=== PATIENT | male | born 1950 | race Caucasian/White ===

== ENCOUNTER 2019-06-26 07:30 | Inpatient (IN) | payer MEDICARE ==
[2019-07-16] MEDS ORDERED: Buffered Lidocaine 1% SYRIN* 1 ML/SYRINGE INTRADERM ONE (15:12)
[2019-07-17] MEDS ORDERED: Lactated Ringers 1000 ML Bag* 1,000 ML IV SCH (06:00)
--- OUTSIDE RECORDS SUMMARY | 2019-07-17 13:30 | XMS REPORT | Continuity of Care Document ---
:1950 Author Organization 0001 - [facility] [employer] Address [address] [place] [address] Phone Care Team Providers Name Role Phone MONTANO DO, KEYOOR Unavailable Unavailable Allergies, Adverse Reactions, Alerts Substance Reaction Status No Known Allergies Active Medications Medication Instructions Dosage Effective Status Comments Dates (start - stop) losartan 50 mg tablet take 1 tablet by 50 MG - Active oral route every day hydrochlorothiazide 12.5 take 1 capsule 12.5 MG - Active mg capsule by oral route every day Eliquis 5 mg tablet take 1 tablet by 5 MG - Active oral route 2 times every day metoprolol succinate ER take 1 tablet by 50 MG - Active 50 mg tablet,extended oral route release 24 hr every day amlodipine 10 mg tablet take 1 tablet by 10 MG - Active oral route every day glimepiride 2 mg tablet take 1 tablet by 2 MG - Active oral route every day Janumet 50 mg-1,000 mg take 1 tablet by 1.00 tablet - Active tablet oral route 2 times every day with meals levothyroxine 137 mcg take 1 tablet by 137 MCG - Active tablet oral route every day omeprazole 20 mg take 1 capsule 20 MG - Active capsule,delayed release by oral route every day 30 minutes to 1 hour before a meal Tylenol PM Extra take 2 tablet by 2.00 tablet - Active Strength 25 mg-500 mg oral route tablet every day at bedtime HYDROXYZINE HCL (unknown Use as directed Not Available - Active strength) GLUCOSAMINE HCL (unknown Use as directed Not Available - Active strength) losartan 50 take 1 tablet by 1.00 tablet - No Longer mg-hydrochlorothiazide oral route Active 12.5 mg tablet every day Aspir-81 81 mg take 1 tablet by 81 MG - No Longer tablet,delayed release oral route Active every day naproxen 500 mg tablet take 1 tablet by 500 MG - No Longer oral route 2 Active times every day with food Problems Condition Effective Dates (start - stop) Clinical Status Abnormal EKG Essential (primary) hypertension Morbid (severe) obesity due to excess calories Right ventricular dilation Atrial fibrillation Hypertensive heart disease without - heart failure Type 2 diabetes mellitus without - complications Hyperlipidemia, unspecified - Peripheral vascular disease, - unspecified Obstructive sleep apnea (adult) - (pediatric) Body mass index (BMI) 45.0-49.9, adult - senior living (current) use of - anticoagulants Sleep apnea, unspecified - Snoring - Body mass index (BMI) 45.0-49.9, adult Atrial fibrillation Essential (primary) hypertension Morbid (severe) obesity due to excess calories Type 2 diabetes mellitus without complications Snoring Morbid (severe) obesity due to excess - calories Morbid (severe) obesity due to excess - calories Morbid (severe) obesity due to excess - calories Dietary counseling and surveillance - Abnormal EKG Essential (primary) hypertension Morbid obesity due to excess calories Right ventricular dilation Atrial fibrillation Hypertensive heart disease without - heart failure Type 2 diabetes mellitus without - complications senior living (current) use of - anticoagulants Body mass index (BMI) 45.0-49.9, adult - Atrial fibrillation Essential (primary) hypertension Morbid obesity due to excess calories Type 2 diabetes mellitus without complications senior living (current) use of - anticoagulants Body mass index (BMI) 45.0-49.9, adult - Low back pain - Low back pain - Low back pain - Low back pain - Low back pain - Low back pain - Abnormal EKG Essential (primary) hypertension Morbid obesity due to excess calories Right ventricular dilation Hypertensive heart disease without - heart failure Body mass index (BMI) 45.0-49.9, adult - Low back pain - Low back pain - Low back pain - Low back pain - Low back pain - Acute bilateral low back pain without sciatica Other dorsalgia Abnormal EKG Essential (primary) hypertension Morbid obesity due to excess calories Bilateral claudication of lower limb Essential (primary) hypertension Pain in right leg - Pain in left leg - Pain in left lower leg - Pain in left knee - Pain in left lower leg - Pain in left knee - Pain in left lower leg - Pain in left knee - Pain in left lower leg - Pain in left knee - Type 2 diabetes mellitus without complications Morbid obesity due to excess calories Dietary counseling and surveillance Adjustment disorder with mixed anxiety and depressed mood Pain in left lower leg - Pain in left knee - Pain in left lower leg - Pain in left knee - Pain in left lower leg - Pain in left knee - Pain in left lower leg - Pain in left knee - Pain in left lower leg - Pain in left knee - Morbid obesity due to excess calories Dietary counseling and surveillance Type 2 diabetes mellitus without complications Pain in left lower leg - Pain in left knee - Pain in left lower leg - Pain in left knee - Pain in left lower leg - Pain in left knee - Pain in left lower leg - Pain in left knee - Pain in left lower leg - Pain in left knee - Pain in left lower leg - Pain in left knee - Pain in left lower leg - Pain in left knee - Pain in left lower leg - Pain in left knee - Morbid obesity due to excess calories Dietary counseling and surveillance Pain in left lower leg - Pain in left knee - Pain in left lower leg - Pain in left knee - Pain in left lower leg - Pain in left knee - Pain in left lower leg - Pain in left knee - Pain in left lower leg - Pain in left knee - Pain in left lower leg - Pain in left knee - Procedure and treatment not carried - out, unspecified reason Body mass index (BMI) 45.0-49.9, adult Morbid obesity due to excess calories Dietary counseling and surveillance Pain of left lower leg Acute pain of left knee Adjustment disorder with mixed anxiety - and depressed mood Low back pain - Pain in right hip - Pain in right knee - Low back pain Pain in unspecified hip Low back pain - Pain in right hip - Pain in right knee - Low back pain - Pain in right hip - Pain in right knee - Low back pain - Pain in right hip - Pain in right knee - Low back pain - Pain in right hip - Pain in right knee - Low back pain - Pain in right hip - Pain in right knee - Low back pain - Pain in right hip - Pain in right knee - Low back pain - Pain in right hip - Pain in right knee - Low back pain - Pain in right hip - Pain in right knee - Low back pain - Pain in right hip - Pain in right knee - Right hip pain Lumbar pain with radiation down right leg Right medial knee pain Benign paroxysmal vertigo, right ear - Dizziness and giddiness Benign paroxysmal positional vertigo, right Procedures Procedure Date Office/outpatient visit,est, [facility] P4P: Systolic BP < 130 Mm/hg Most Recent BP 80-89 Diastolic Results Test Name Date and Time Measure Units Reference Range Abnormal Flag Status Comments Unknown Encounters Encounter Practice Location Reason(s) For Diagnoses Date Provider Providers Description Visit Copied on Encounter Office/outpa 0001 - [facility] Follow Up of Abnormal SAMMI peter [employer], Cardiology Afib (chief EKGEssential 3202 KEYOOR. 30 visit,est, 33-57 complaint)Fol (primary) 0 Joey jess Cook low Up of hypertensionM [facility], Hypertension orbid Suite [facility] [place] (chief (severe) [place], [place], complaint)[place], [address], low Up of Ab to excess [address]. tel:+160 EKG (chief caloriesRight tel:[phone] complaint) ventricular 11554 dilationAtria l fibrillationH ypertensive heart disease without heart failureType 2 diabetes mellitus without complications Hyperlipidemi a, unspecifiedPe ripheral vascular disease, unspecifiedOb structive sleep apnea (adult) (pediatric)Greg dy mass index (BMI) 45.0-49.9, adultLong term (current) use of anticoagulant s 2019 - S Sleep Sleep apnea, Sep- CONNIE [employer], Center unspecified 3-201 ELIAN. 93 33-57 9 Jamey Martinez [facility], [facility], [address]. [place], [place], tel:[phone], [place] [address] tel: [phone] 2019 - [facility] Sleep Snoring Sep-2 CONNIE [facility] [address], Center 0-201 ELIAN. 93 33-57 9 [place] Joey [facility], [place], [facility], [address]. [place], [place], tel:[phone], [place] [address] tel: [phone] 0001 - [facility] Sleep Body mass Sep-0 [employer] [facility] [address], Center index (BMI) 3-201 ELIAN. 93 33-57 45.0-49.9, 9 [place] Joey [facility] Michelle, [facility], [place], [facility], [address]. [place], (primary) tel:[phone], [place] hypertensionM [address] tel: orbid [phone] (severe) obesity due to excess caloriesType 2 diabetes mellitus without complications Snoring 0001 - [facility] Fidelia Aug-0 MONTANO [employer], Cardiology 1-201 KEYOOR. 30 33-57 9 Joey Cormier, [place], [address], [place], [place], [place], [address], [place] [address]. tel: tel:[phone] 0001 - [facility] Morbid Kavon-1 [employer], Cardiology (severe) 0-201 QUYNH. . 33-57 obesity due [address], [place], [address], [place] tel: [phone] 0001 - [facility] Morbid Alhaji-2 [employer], Cardiology (severe) 6-201 QUYNH. . 33-57 obesity due [address], [place], [address], [place] tel: [phone] 0001 - [facility] Morbid Alhaji-1 [employer], Cardiology (severe) 2-201 QUYNH. . 33-57 obesity due [address], [place]eta [place], [place] [address], [place] surveillance tel: [phone] 0001 - [facility] Alhaji- [employer], Cardiology 7 KATH. 30 9 [facility], [place], [address], [place], [place], [place], [address], [place] [address]. tel: tel:[phone] 0001 - [facility] Abnormal Oct- [facility], Cardiology EKGEssential KEYOOR. (primary) 9 [facility], [place], orbid obesity [address] [place] [address] due to excess [place], [place], [place], [address], [place] ventricular [address]. tel: dilationAtria tel:[phone] l 42256 fibrillationH ypertensive heart disease without heart failureType 2 diabetes mellitus without complications senior living (current) use of anticoagulant sBody mass index (BMI) 45.0-49.9, adult 0001 - [facility] Atrial September- FISH ESPERANZA. [facility] [address], Cardiology fibrillationE 30 [place] ssential 9 [facility] (primary) [address], [address], [facility] [place], [place], due to excess [address]. [address], [place] caloriesType tel:776 tel: 2 diabetes [phone] mellitus without complications termite control technician (current) use of anticoagulant sBody mass index (BMI) 45.0-49.9, adult 0001 - S Phys Low back pain Nov- ERIC [employer] Inc, Therapy PEE. 91 Provider: 33- Blake Lozano [facility], [address] [place] [address], [address], [place], [place], tel:[phone] [place], [address], [place] [address] [place], [address]. tel: tel:[phone] 0001 - S Phys Low back pain Nov-2 BURPEE Referring [employer] Inc, Therapy DAMION. 91 Provider: 33-Paul Lozano SU[place] [address], [address]. , [place], tel:[phone] [place], [address], [place] [address] [place], [address]. tel: tel:[phone] 0001 - [facility] Low back pain Nov- SWARTZ RONEY. Referring S Inc, Therapy [place] Provider: 33-57 Blake Messina, [facility], [place], [address]. [address] [facility] tel:[phone] , [place], [address] [place], [address], [place], [address]. tel: tel:[phone] 0001 - [facility] Phys Low back pain Nov- SWARTZ RONEY. Referring S Inc, Therapy [place] Provider: 33-57 Blake Messina, [facility], [place], [address]. [address] [facility] tel:[phone] , [place], [address] [place], [address], [place], [address]. tel: tel:[phone] 0001 - [facility] Phys Low back pain Nov-0 SWARTZ RONEY. Referring S Inc, Therapy [place] Provider: 33-57 Blake Messina, SPT, [place], [address]. [address] [facility] tel:[phone] , [place], [address] [place], [address], [place], [address]. tel: tel:[phone] 0001 - [facility] Phys Low back pain Feb- ERIC Referring [facility], Therapy Provider: 33-57 Blake Lozano [address], [address], [place], [place], tel:[phone] [place], [address], [place] [address] [place], [address]. tel: tel:[phone] 0001 - [facility] Abnormal Oct-2 [facility], Cardiology EKGEssential 201 [facility]. 30 57 (primary) 8 [facility], Street, orbid obesity [address], [place] due to excess [place], [place], [address], [place] ventricular [address]. tel: dilationHyper tel:[phone] tensive heart [address] disease without heart failureBody mass index (BMI) 45.0-49.9, adult 0001 - S Phys Low back pain Oct- ERIC Referring [facility] [address], Therapy PEE. 91 Provider: 33-[address], [address]. , [place], tel:[phone] [place], [address], [place] [address] [place], [address]. tel: tel:[phone] 0001 - S Phys Low back pain Oct- HEMET Referring [facility] [address], Therapy PEE. 91 Provider: 33-[address], [address]. , [place], tel:[phone] [place], [address], [place] [address] [place], [address]. tel: tel:[phone] 0001 - S Phys Low back pain Oct-0 SWARTZ RONEY. Referring S [facility], Therapy [place] Provider: 33-57 [address], [facility], [place], [address]. [address] [facility] tel:[phone] , [place], [address] [place], [address], [place], [address]. tel: tel:[phone] 0001 - [facility] Phys Low back pain Oct-0 ERIC Referring S Inc, Therapy 4-201 PEE. 91 Provider: 33-57 Blake [address], [address], [address], [place], tel:[phone] [place], [address], [place] [address] [place], [address]. tel: tel:+ [phone] 0001 - [facility] Phys Low back pain Oct-0 ERIC Referring S Inc, Therapy 1-201 PEE. 91 Provider: 33-57 Blake 8 Blake Cook [facility] [address], [address], [address], [place], tel:[phone] [place], [address], [place] [address] [place], [address]. tel: tel:[phone] 0001 - [facility] Phys Acute Sep-2 ERIC Referring S Inc, Therapy bilateral low 6-201 PEE. 91 Provider: 33-57 [place] back pain 8 Blake Cook [facility] [address], [facility], [facility] [place], [address]. Rd, [place], tel:[phone] [place], [address], [place] [address] [place], [address]. tel: tel:[phone] 0001 - [facility] Abnormal May-2 MONTANO [facility], Cardiology EKGEssential 3-201 KEYOOR. (primary) 8 Joey Cook [facility], Street, orbid obesity [address], [place] due to excess [place], [place], [place] [facility], [address], [place] [address]. tel: tel:[phone] 0001 - S Surgery Bilateral Apr-0 SRINIVASA S Inc, claudication 9-201 KRISTY. of lower 8 Joey Cook [facility], Street, (primary) [address], [place], [place], [address], [place] [address]. tel:+ left leg tel:[phone] 0001 - [facility] Phys Pain in left Mar-2 BURPEE Referring [facility], Therapy lower legPain 7 DAMION. 91 Provider: 33-57 [place] in left knee [address] [place] [address], [address]. , [place], [place], tel:[phone] [facility], [address], [place] [address] [place], [address]. tel: tel:[phone] 0001 - [facility] Phys Pain in left Mar-2 BURPEE Referring [facility], Therapy lower legPain 2- DAMION. 91 Provider: 33-57 [place] in left knee [address] [place] [address], [address]. , [place], [place], tel:[phone] [facility], [address], [place] [address], [address]. tel: tel:[phone] 0001 - [facility] Phys Pain in left Jul- MAXIME SIM. Referring [facility], Therapy lower legPain 91 [place] Provider: 33-57 [place] in left knee 8 Br, [facility], [place], [address]. 415 [facility] tel:[phone] , [place], [address] [facility], [address], [place], [address]. tel: tel:[phone] 0001 - [facility] Phys Pain in left Mar-1 ERIC Referring [facility] Inc, Therapy lower legPain 5- PEE. 91 Provider: 33-57 [place] in left knee 8 [place] SUCHET Joey [address], [address], [address], [place], tel:[phone] [place], [address], [place] [address] [place], [address]. tel: tel:[phone] 0001 - S Primary Type 2 Mar-1 LILLY ORTIZ. [facility] Inc, Care diabetes 3-201 142 David 33-57 David mellitus 8 [facility] without SPC, Street, complications [facility], [address]. [place], obesity due tel:[phone], [place] to excess [address] tel:+ caloriesDieta [phone] ry counseling and surveillanceA djustment disorder with mixed anxiety and depressed mood 0001 - S Phys Pain in left Mar-1 ERIC Referring S Inc, Therapy lower legPain 2-201 PEE. 91 Provider: 33-57 [place] in left knee 8 Blake [facility], [address], [address], [place], tel:[phone] [place], [address], [place] [address] [place], [address]. tel: tel:[phone] 0001 - S Phys Pain in left Mar-0 BURPEE Referring S Inc, Therapy lower legPain 8-201 DAMION. 91 Provider: 33-57 [place] in left knee 8 [address], [address], [place], tel:[phone] [place], [address], [place] [address] [place], [address]. tel: tel:[phone] 0001 - S Phys Pain in left Feb-2 BURPEE Referring S Inc, Therapy lower legPain 6-201 DAMION. 91 Provider: 33-57 [place] in left knee 8 Blake TERESA [address], [address], [place], [place], tel:[phone] [place], [address], [place] [address] [place], [address]. tel: tel:[phone] 0001 - S Phys Pain in left Feb-2 BURPEE Referring S Inc, Therapy lower legPain 0-201 DAMION. 91 Provider: 33-57 [place] in left knee 8 [facility], [address], [address], [place], [place], tel:[phone] [place], [address], [place] [address] [place], [address]. tel: tel:[phone] 0001 - S Phys Pain in left Feb-1 ERIC Referring S Inc, Therapy lower legPain 6-201 PEE. 91 Provider: 33-57 [place] in left knee 8 [facility], [address], [address], [place], tel:[phone] [place], [address], [place] [address] [place], [address]. tel: tel:[phone] 0001 - [facility] Primary Morbid Feb-1 MAY DIANA. S Inc, Care obesity due 3-201 142 David 33-57 David to excess 8 [facility], [place], [place], [address]. [place], surveillanceT tel:[phone], [place] ype 2 [address] tel:+[phone] diabetes [phone] mellitus without complications 0001 - S Phys Pain in left Feb-1 BURPEE Referring S Inc, Therapy lower legPain 2-201 DAMION. 91 Provider: 33-57 [place] in left knee 8 [facility], [address], [address], [place], tel:[phone] [place], [address], [place] [address] [place], [address]. tel: tel:[phone] 0001 - [facility] Phys Pain in left Feb-0 ERIC Referring [facility], Therapy lower legPain 8-201 PEE. 91 Provider: 33-57 [place] in left knee 8 [place] MALICK [facility], [address], [address], [place], tel:[phone] [place], [address], [place] [address] [place], [address]. tel: tel:[phone] 0001 - [facility] Phys Pain in left Feb-0 BURPEE Referring [facility], Therapy lower legPain 5-201 DAMION. 91 Provider: 33-57 [place] in left knee 8 [place] [facility], [address], [address], [place], tel:[phone] [place], [address], [place] [address] [place], [address]. tel: tel:[phone] 0001 - [facility] Phys Pain in left Feb-0 ERIC Referring [facility], Therapy lower legPain 2-201 PEE. 91 Provider: 33-57 [place] in left knee 8 [place] [facility], [address], [address], [place], tel:[phone] [place], [address], [place] [address] [place], [address]. tel: tel:[phone] 0001 - [facility] Phys Pain in left Viet-2 ERIC Referring [facility], Therapy lower legPain 6-201 PEE. 91 Provider: 33-57 [place] in left knee 8 [place] MALICK [facility], [address], [address], [place], tel:[phone] [place], [address], [place] [address] [place], [address]. tel: tel:[phone] 0001 - [facility] Phys Pain in left May- MAXIME SIM. Referring S Inc, Therapy lower legPain 3201 91 [place] Provider: 33-57 [place] in left knee 8 Br, [facility], [place], [address]. [address] [place] [address] tel:[phone] Rd, [place], [address] [place], [address], [place], [address]. tel: tel:[phone] 0001 - S Phys Pain in left HEMET Referring S Inc, Therapy lower legPain 9 PEE. 91 Provider: 33-57 [place] in left knee [address] [place] [address], [address], [place], tel:[phone] [place], [address], [place] [address] [place], [address]. tel: tel:[phone] 0001 - S Phys Pain in left HEMET Referring S Inc, Therapy lower legPain 6 PEE. 91 Provider: 33-57 [place] in left knee 8 [place] [facility], [address], [address], [place], tel:[phone] [place], [address], [place] [address] [place], [address]. tel: tel:[phone] 0001 - S Primary Morbid September DIANA. S Inc, Care obesity due 201 142 David 33-57 David to excess [address], [facility], Street, [place], [address]. [place], surveillance tel:[phone], [place] [address] tel: [phone] 0001 - S Phys Pain in left May- ERIC Referring [facility], Therapy lower legPain 2-201 PEE. 91 Provider: 33-57 [place] in left knee 8 [place] [facility], [address], [address]. , [place], tel:[phone] [place], [address], [place] [address] [place], [address]. tel: tel:[phone] 0001 - S Phys Pain in left May- ERIC Referring [facility], Therapy lower legPain 9-201 PEE. 91 Provider: 33-Paul [place] in left knee 8 [place] [facility], [address], [address]. , [place], tel:[phone] [place], [address], [place] [address] [place], [address]. tel: tel:[phone] 0001 - S Phys Pain in left May- BURPEE Referring [facility], Therapy lower legPain 4-201 DAMION. 91 Provider: 33-57 [place] in left knee 8 [place] [facility], [address], [address]. , [place], tel:[phone] [place], [address], [place] [address] [place], [address]. tel: tel:[phone] 0001 - S Phys Pain in left Dec-2 SWARTZ RONEY. Referring [facility], Therapy lower legPain 6-201 91 [place] Provider: 33-57 [place] in left knee 7 Br, [facility], [place], [address]. [address] [facility] tel:[phone] , [place], [address] [place], [address], [place], [address]. tel: tel:[phone] 0001 - S Phys Pain in left Dec- BURPEE Referring S Inc, Therapy lower legPain 2-201 DAMION. 91 Provider: Yaya Lozano in left knee 7 [place] MALICK [address], [address], [place], tel:[phone] [place], [address], [place] [address] [place], [address]. tel: tel:[phone] 0001 - S Phys Pain in left Dec- MAXIME SIM. Referring S Inc, Therapy lower legPain [place] Provider: Yaya Lozano in left knee 7 Br, [place], [place], [address]. 415 [facility] tel:[phone] Rd, [place], [address] [place], [address], [place], [address]. tel: tel:[phone] 0001 - [facility] Primary Procedure and September DIANA. [facility] [address], Care treatment not 4-201 142 David 33-57 David carried out, [address] [place] [address] [facility], Street, reason [facility], [address]. [place], tel:[phone], [place] [address] tel: [phone] 0001 - [facility] Primary Body mass September DIANA. [facility] [address], Care index (BMI) 2-201 142 David 33-57 David 45.0-49.9, [address] [place] [address] [facility], Street, obesity due [facility] [place], [address]. [place], caloriesDieta tel:[phone], [place] ry counseling [address] tel:[phone] and [phone] surveillance 0001 - S Phys Pain of left Dec- ERIC Referring S Inc, Therapy lower 2-201 PEE. 91 Provider: Yaya Lozano legAcute pain 7 [place] SUCHET Joey Bridge of left knee [address], [facility], [address], [address], [place], tel:[phone] [facility], [address], [place] [address] [place], [address]. tel:+60 tel:[phone] 0001 - S Primary Adjustment Nov- [facility], Care disorder with 0-201 KHRIS. [facility] 33-57 [place] mixed anxiety 7 [place], [address]. [address], [place] tel:[phone] tel:[phone] 0001 - S Phys Low back Sep-1 BURPEE Referring S Inc, Therapy painPain in [place]. Provider: 33-57 [place] right hipPain 7 [place] ORALIA Joey Bridge in right knee [address], [address], [address] [facility], [place], [place], tel:[phone] [place], [address], [place] [address] [place], [address]. tel:[phone] tel:[phone] 0001 - S Ortho Low back pain Sep-1 IDANIA MENA. S Inc, Ctr Ortho 3-201 [facility] 4433 33-[address], [place], [address]. Tar[place] tel:[phone] [place], [address], [place] tel:[phone] 0001 - S Ortho Pain in Sep-1 IDANIA MENA. S Inc, Ctr Ortho unspecified 2-201 [facility] 4433 33-[address], [place], [address]. [place] tel:[phone] [place], [address], [place] tel:[phone] 0001 - S Phys Low back Sep-1 BURPEE Referring S Inc, Therapy painPain in [place]. Provider: 33-57 [place] right hipPain 7 [place] ORALIA Joey Bridge in right knee Bridge [facility], [address] [place] [address], [address]. [facility], [place], [place], tel:[phone] [place], [address], [place] [address] [place], [address]. tel: tel:[phone] 0001 - [facility] Phys Low back Sep-0 SWARTZ RONEY. Referring [facility], Therapy painPain in [place] Provider: 33-57 [place] right hipPain 7 Br, [facility], ORALIA Joey [place], [address]. 415 [facility] tel:[phone] [facility], [place], [address] [place], [address], [facility], [address]. tel: tel:[phone] 0001 - [facility] Phys Low back Sep-0 BURPEE Referring [facility], Therapy painPain in [place]. 91 Provider: 33-57 [facility] hipPain 7 [place] ORALIA Joey Bridge in right knee [facility], [address] [place] [address], [address]. [facility], [place], [place], tel:[phone] [place], [address], [place] [address] [place], [address]. tel: tel:[phone] 0001 - [facility] Phys Low back Aug-2 ERIC Referring [facility], Therapy painPain in [place]. 91 Provider: 33-57 [place] right hipPain 7 [place] ORALIA Joey Bridge in right knee [facility], [address] [place] [address], [address]. [facility], [place], [place], tel:[phone] [place], [address], [place] [address] [place], [address]. tel: tel:[phone] 0001 - [facility] Phys Low back Aug-1 ERIC Referring [facility], Therapy painPain in [place]. 91 Provider: 33-57 [place] right hipPain 7 [place] ORALIA Joey Bridge in right knee [address], [address], [address]. [facility], [place], [place], tel:[phone] [place], [address], [place] [address] [place], [address]. tel: tel:[phone] 0001 - [facility] Phys Low back Aug-1 ERIC Referring [facility], Therapy painPain in [facility]. 91 Provider: 33-57 [place] right hipPain 7 [place] ORALIA Joey Bridge in right knee Bridge [facility], [address] [place] [address], [address]. [facility], [place], [place], tel:[phone] [place], [address], [place] [address] [place], [address]. tel: [phone] 0001 - [facility] Phys Low back Aug- ERIC Referring [facility], Therapy painPain in [facility]. 91 Provider: 33-57 [place] right hipPain 7 [place] ORALIA Joey Bridge in right knee Bridge [facility], [facility], [address] [place] [address], [address]. [facility], [place], [place], tel:[phone] [place], [address], [place] [address] [place], [address]. tel: [phone] 0001 - [facility] Phys Low back Aug-0 SWARTZ RONEY. Referring [facility], Therapy painPain in [place] Provider: 33-57 [place] right hipPain 7 Br, [facility], ORAL[place] Joey [place], [address]. 415 [facility] tel:[phone] [facility], [place], [address] [place], [address], [place], [address]. tel: tel:[phone] 0001 - [facility] Phys Low back Aug-0 ERIC Referring [facility], Therapy painPain in [place]. 91 Provider: 33-57 [place] right hipPain 7 [place] ORALIA Joey Bridge in right knee [address], [address], [address] [facility], [place], [place], tel:[phone] [place], [address], [place] [address] [place], [address]. tel: tel:[phone] 0001 - [facility] Phys Right hip Aug-0 ERIC Referring S Inc, Therapy painLumbar 2 PEE. 91 Provider: 33-57 [place] pain with 7 [place] ORALIA Joey [address], [facility], down right [address] [facility] [address] [facility], [place], [place], medial knee tel:[phone] [place], [address], [place] [address] [place], [address]. tel: tel:[phone] 0001 - [facility] Phys Benign Apr-2 ERIC Referring S Inc, Therapy paroxysmal 6-201 PEE. 91 Provider: 33-57 [place] vertigo, 7 [place] Joey Bridge right ear [address], [facility], [address] [place] [address], [address], [place], [place], tel:[phone] [place], [address], [place] [address] [place], [address]. tel: tel:[phone] 0001 - S Phys Dizziness and Apr-2 ERIC Referring S Inc, Therapy giddinessBeni 4201 PEE. 91 Provider: 33-57 [place] gn paroxysmal 7 [place] SUCHET Joey Bridge positional [address], [facility], vertigo, [address] [place], [address]. Rd, [place], [place], tel:[phone] [place], [address], [place] [address] [place], [address]. tel: tel:[phone] Family History Family Member Diagnosis Age At Onset Unknown Immunizations Vaccine Date Status Comments Immunization Unknown Payers Payer name Insurance type Covered democrat ID Authorization(s) Rekha Ruiz [id number] Social History Type Description Quantity Date Captured Comments Alcohol Use Details Caffeine Use Details coffee 2 cups per day Tobacco Use Status Unknown Smoking Status Never smoker Non-Smoking Tobacco : No Details Available : No Details Available 2019 Use Details Vital Signs Date / Height Weight BMI Pulse Blood Temperature Respiratory Body Head BMI Time: Rate Pressure Rate Surface Circumference percentile Area 70.87 353.84 49.5 89 118/80 2020 in lbs 3 /min mm[Hg] 11:14 kg/m AM eter (2) Chief Complaint And Reason For Visit Most recent encounter only, dated '05/28/2019 10:59'. Follow Up of Afib ( chief complaint). Description: Pain severity level is 0/10. The problem is with no change. Pertinent negatives include chest pain, diaphoresis, dizziness , dyspnea on exertion, irregular heartbeat/palpitations and lightheadedness.Follow Up of Hypertension (chief complaint). Description: It is currently stable. Risk factors include male gender. Pertinent negatives include chest pain, diaphoresis and irregular heartbeat/palpitations.Follow Up of Ab EKG (chief complaint) Reason For Referral Reason For Referral Unknown Plan Of Care Date Type Action Status Referral Ordered: ordered Sleep study, unattended Referral Ordered: ordered ELIAN ROSALES MD -Sleep Disorders (related to Right ventricular dilation) Referral Referred To: ordered ELIAN ROSALES MD [address] [place] [address], [address] [phone] Ordered: Referrals: Sleep Disorders. ELIAN ROSALES MD. Evaluate and treat Referral Ordered: ordered Echocardiography With Color Flow Appointment date/timeframe: 11/09/2017 Referral Ordered: ordered *EKG Complete Referral Ordered: ordered U/S Vascular Arterial Duplex lower extremity bilateral Appointment date/timeframe: Today Appointment NAVI HAMPTON Date Type Problem Goal Intervention Status Start Date Unknown History Of Present Illness Encounter Date Complaint History Of Present Illness Follow Up of Hypertension It is currently stable. Risk factors include male gender. Pertinent negatives include chest pain, diaphoresis and irregular heartbeat/palpitations. Follow Up of Ab EKG Follow Up of Afib Pain severity level is 0/10. The problem is with no change. Pertinent negatives include chest pain, diaphoresis, dizziness, dyspnea on exertion, irregular heartbeat/palpitations and lightheadedness. Functional Status Encounter Date Functional Assessment Cognitive Assessment N/A Orientation - Oriented to time, place, person, situation. Medications Administered Medication Instructions Dosage Effective Dates (start - stop) Status Comments Drug Treatment Unknown Instructions Date Instruction Additional Information 1. stable2. c/w meds Related to Abnormal EKG 1. Recommend diet and salt Related to Essential (primary) restriction. Encourage medical hypertension compliance. Keep log of blood pressure recordings daily2. Pt will fu with ROSTER CLERK in 6months to optimze meds after bariatric surgery in 2.20 1. Patient encouraged start a low Related to Morbid (severe) obesity impact exercise program. 2. Advised due to excess calories on calorie restricted diet to promote weight loss of 1-2 lbs per month3. Bariatric Surgery planned on 06.26.19. Congratulations!4. FU with ROSTER CLERK in 6mon 1. FU with Sleep study to underlying Related to Right ventricular sleep apnea dilation sleep physiology, nocturia, HST, PSG, Related to Snoring CPAP were discussed with the patient at length, will do HST, if negative will do PSG, it seems that the in house titration would be better then autoPAP as the patient likely has obesity hypoventilation syndrome and hypoxia likely has to be corrected 1. Patient encouraged start a low Related to Morbid obesity due to impact exercise program. 2. Advised excess calories on calorie restricted diet to promote weight loss of 1-2 lbs per month3. COnsidering Bariatric Surgery4. Refer to early childhood special educator 1. FU with Sleep study to underlying Related to Right ventricular sleep apnea dilation 1. Recommend diet and salt Related to Essential (primary) restriction. Encourage medical hypertension compliance. Keep log of blood pressure recordings daily EKG today showing new onset atrial Related to Atrial fibrillation fibrillation with RVR. Patient with no previous history of A. fib. Echocardiogram reviewed from 10/2017 showing normal LV systolic function. Patient denies any history of bleeding or anemia. Most recent labs reviewed from 05/2018. Patient instructed to start Eliquis 5 mg twice daily for stroke prevention. Also instructed to start metoprolol 50 mg daily at bedtime for heart rate control. Risks and benefits of medications discussed with patient and with good understanding. Discussed the importance of anticoagulation, no missed doses. Patient encouraged to avoid naproxen, okay to use Tylenol as needed. Encourage patient to decrease alcohol intake.Follow-up with Dr. Montano in 2 to 3 weeks. If he remains in A.Fib, consider cardioversion. If further rate control as needed, consider changing calcium channel mendoza. Blood pressure well controlled today Related to Essential ( primary) in the office. If blood pressure is hypertension low after addition of metoprolol, recommend decreasing amlodipine. Patient encouraged to purchase a blood pressure apparatus to monitor more regularly. Most recent A1c 7.2. Related to Type 2 diabetes mellitus without complications Patient is scheduled to have bariatric Related to Morbid obesity due to surgery later this year. Follow-up in excess calories [place] as scheduled. 1. Refer to Sleep study to underlying Related to Right ventricular sleep apnea dilation 1. Patient encouraged start a low Related to Morbid obesity due to impact exercise program. 2. Advised excess calories on calorie restricted diet to promote weight loss of 1-2 lbs per month 1. C/w TTE with def Related to Abnormal EKG 1. Recommend diet and salt Related to Essential (primary) restriction. Encourage medical hypertension compliance. Keep log of blood pressure recordings daily.2. Pt will call office in 2wks with BP log 1. C/w TTE with def Related to Abnormal EKG 1. Patient encouraged start a low Related to Morbid obesity due to impact exercise program. 2. Advised excess calories on calorie restricted diet to promote weight loss of 1-2 lbs per month 1. Recommend diet and salt Related to Essential (primary) restriction. Encourage medical hypertension compliance. Keep log of blood pressure recordings daily. Pt's pain has improved. Recommend Related to Low back pain continuing with exercises after discharged from therapy. If symptoms return recommend MRI of lumbar spine.
--- OUTSIDE RECORDS SUMMARY | 2019-07-17 13:30 | XMS REPORT | Continuity of Care Document ---
:1950 External Reference #:[id number] Author Name Faith Montano M.D. Address [address] [place] [address] Care Team Providers Name Role Phone Faith Montano M.D. - Family Medicine Care Team Information Posting Machine Operator Daniel Montano DO Care Team Information Posting Machine Operator [phone] Problems Active Problems Provider Date Type 2 diabetes mellitus Faith Montano M.D. Onset: 07/06/2004 Benign essential hypertension Faith Montano M.D. Onset: 07/06/2004 Mixed hyperlipidemia Faith Montano M.D. Onset: 07/06/2004 Proteinuria Faith Montano M.D. Onset: 07/06/2004 Morbid obesity Faith Montano M.D. Onset: 07/06/2004 Obesity Faith Montano M.D. Onset: 06/09/2009 Hypothyroidism Faith Montano M.D. Onset: 04/19/2011 Social History Type Date Description Comments Sex Unknown Cigarette Use Negative For Former Cigarette Smoker Tobacco Use Start: Unknown Currently Smokes an Occasional Cigar Tobacco Use Start: Unknown End: current.occasional.[occasion Unknown al] ETOH Use current.yes ETOH Use Occasionally consumes alcohol ETOH Use Occasionally consumes beer ETOH Use Occasionally consumes wine Recreational Drug Use Denies Drug Use Tobacco Use Start: Unknown Patient has never smoked Smoking Status Reviewed: 01/17/19 Patient has never smoked Exercise Type/Frequency exercises sporadically Seat Belt/Car Seat yes Allergies, Adverse Reactions, Alerts Description No Known Drug Allergies Medications Active Medications SIG Qnty Indications Ordering Date Provider Losartan Potassium 1 by mouth every 90tabs Faith Montano, 50mg Tablets day M.D. 9 Hydrochlorothiazide 1 by mouth every 90tabs Suchet Montano, 12.5mg day M.D. 9 Tablets Zetia 1 by mouth every 90tabs Suchet Montano, 10mg Tablets day M.D. 8 Freestyle Lite Blood use as directed 1units L03.115 Prisca Glucose Monitoring System once daily SACHA Wang 7 dx:e11.9 Device Freestyle Lite Test for once daily 100units E11.9 Zach Strips blood glucose MD Bear 7 testing dx:e11.9 Lancets 28G Use as directed 30units L03.115 Prisca 28G Misc once daily. SACHA Wang 7 E11.9 Amlodipine Besylate 1 by mouth every 90tabs Suchet Montano, 10mg day M.D. 7 Tablets Synthroid 1 by mouth every 90tabs Suchet Montano, 137mcg Tablets in the morning M.D. 7 Glimepiride 1 by mouth every 90tabs Suchet Montano, 2mg Tablets day M.D. 6 Hydroxyzine HCL 1 tab by mouth 90tabs Suchet Montano, 25mg Tablets every night at M.D. 6 bedtime as needed insomnia Accu-Chek Soft Touch use every day 100units Suchet Montano, Lancets for glucose M.D. 4 Misc check dx code 250.00 Accu-Chek Savanah as directed for 1units Suchet Montano, Device blood glucose M.D. 4 monitoring DX 250.00 Omeprazole 1 by mouth every 90caps Suchet Montano, 20mg Capsules DR day M.D. 4 Janumet 1 by mouth twice 180tabs Suchet Montano, 50-1000mg Tablets a day M.D. 4 Zeasorb-AF Montano,Suchet 2% Powder M.D. 2 Accu-Chek Savanah to ck blood 100units Suchet Montano, Strips sugar readings M.D. 8 every day for dm Tylenol PM Extra Strength Unknown 0 500-25mg Tablets Multi Vitamin Mens 1 by mouth every OTC Unknown Tablets day 0 Glucosamine Chondroitin 1 by mouth twice Unknown 1500 Complex Maximum daily 0 Strength 1500Com Capsules Eliquis 1 by mouth twice Montano, [facility] 5mg Tablets a day DO 0 Metoprolol Succinate ER 1 by mouth every Montano, [place] 50mg day DO 0 Tablets ER 24HR Medications Administered in Office Medication SIG Qnty Indications Ordering Provider Date Ketorolac 15mg Zach Sifuentes MD 12/07/2016 Injection Ketorolac 15mg Zach Sifuentes MD 11/29/2016 Injection Ceftriaxone/Rocephin Faith Montano M.D. 04/05/2011 250MG/1Unit Injection Ceftriaxone/Rocephin Dave Rosen MD 12/09/2007 250MG/1Unit Injection Ceftriaxone/Rocephin Usha WallR.NViji, 12/08/2007 250MG/1Unit [facility] Injection Ceftriaxone/Rocephin Faith Montano M.D. 09/20/2007 250MG/1Unit Injection Ceftriaxone/Rocephin Hugo Colindres MD 09/19/2007 250MG/1Unit Injection Promethazine Up To 50MG/1cc Roger Collins, R.P.A. 08/28/2004 Injection Ketorolac 15mg Roger Collins R.P.A. 08/28/2004 Injection Immunizations CPT Code Status Date Vaccine Lot # [id number] Given 03/20/2019 Flu/Sanofi/Fluzone Iiv3 High-Dose Age 65 And Older 74642 Given 04/27/2018 Flu/Sanofi/Fluzone Iiv3 High-Dose Age 65 And [id number] Older 57183 Given 08/22/2017 Pneumovax [id number] 07939 Given 04/12/2017 Flu/Sanofi/Fluzone Iiv3 High-Dose Age 65 And [id number] Older 86200 Given 06/15/2016 Prevnar (Pneumococcal 13/V C.Vaccine) [id number] 45254 Given 02/03/2016 Flu/Sanofi/Fluzone Iiv4 3Yrs And Older [id number] Q2037 Given 02/10/2015 Fluvirin Iiv3 Records Only 31666 Given 02/11/2014 Flu/Sanofi/Fluzone Iiv4 3Yrs And Older [id number] 13558 Given 10/02/2013 Zoster( Zostavax ) [id number] Q2035 Given 02/09/2013 Flu/Afluria/Seqirus Records Only Q2038 Given 02/28/2012 Flu/Trivalent MDV Medicare Records Only [id number] Q2035 Given 03/17/2011 Flu/Afluria/Seqirus Records Only 75760 Given 03/02/2010 Adacel (TdaP) [id number] 13357 Given 01/14/2010 Fluvirin/Trivalent Iiv3 4Yr & Older 78687 Given 06/09/2009 Fluvirin/Trivalent Iiv3 4Yr & Older [id number] 12617 Given 05/26/2009 H1N1 Influenza Virus Vaccine 67863 Given 04/18/2006 Fluvirin/Trivalent Iiv3 4Yr & Older 72110 Given 03/07/2003 Fluvirin/Trivalent Iiv3 4Yr & Older Vital Signs Date Vital Result Comment 05/29/2019 11:37am Weight 355.00 lb Height 70 inches 5'10" BP Systolic 140 mmHg lg.cuff BP Diastolic 80 mmHg lg.cuff Heart Rate 76 /min BMI (Body Mass Index) 50.9 kg/m2 01/17/2019 2:03pm Weight 355.25 lb Height 70 inches 5'10" BP Systolic 126 mmHg BP Diastolic 80 mmHg Heart Rate 78 /min BMI (Body Mass Index) 51.0 kg/m2 Z68.43 A, 50.0-59.9 Results Test Acquired Date Facility Test Result H/L Range Note Lipid 05/22/2019 [facility] Cholesterol 151 mg/dL <200 [address] [place] [address] [phone] HDL Cholesterol 44 mg/dL 40 - 60 HDL Risk Factor 3.4 calc 1 LDL (Calculated) 96 calc 0 - 129 Triglycerides 55 mg/dL 0 - 150 VLDL Cholesterol 11 calc CMP 05/22/2019 [facility] Sodium 136 mmol/L 136 - 145 [address] [place] [address] [phone] Potassium 4.1 mmol/L 3.5 - 5.1 Chloride 100 mmol/L 98 - 107 A/G Ratio 1.4 calc Glucose 156 mg/dL High 80 - 105 Bun 16 mg/dL 8 - 26 Creatinine 0.8 mg/dL 0.7 - 1.3 BUN/Creat Ratio 19.8 calc Total Protein 6.5 g/dL 6.4 - 8.3 Albumin 3.8 g/dL 3.5 - 5.0 Anion Gap 7.1 Alk. Phosphatase 59 U/L 40 - 150 Alt 19 U/L 0 - 55 Ast 14 U/L 5 - 34 Total Bilirubin 0.70 mg/dL 0.20 - 1.20 gfr (gfr-ca) >60 ml/min/1.73m >60 gfr (gfr-aa) >60 ml/min/1.73m >60 C02 33 mmol/L High 23 - 32 Calcium 9.0 mg/dL 9.0 - 10.5 Globulin 2.7 g/dL CBC 05/22/2019 [facility] WBC Blood 5.6 K/uL 4.5 - 11.0 [address] [place] [address] [phone] RBC Blood 4.98 m/uL 4.60 - 5.40 HGB 15.1 g/dL 13.5 - 18.0 HCT 44.9 % 40.0 - 54.0 MCV 90.2 fL 82.0 - 98.0 MCH 30.3 pg 27.0 - 31.0 MCHC 33.6 g/dL 32.0 - 36.0 RDW 13.2 % 11.5 - 14.5 PLT 196 10 130 - 400 MPV 9.8 fL 7.4 - 10.4 2 Neutrophil# 3 10 1 - 7 Neutrophil% 59 % 30 - 70 Lymph# 1.6 10 1.2 - 3.4 Lymph% 28.1 % 20.0 - 40.0 Cottle# 1 10 0 - 2 Cottle% 10 % 0 - 15 Eos# 0 10 0 - 1 Eos% 2 % 0 - 10 Baso# 0 10 0 - 0 Baso% 0 % 0 - 2 Immature grans # 0 10 0 - 0 Immature Grans % 0 % 0 - 1 Hemoglobin A1c 05/22/2019 [facility] Estimated Average 160 [address] [facility] [place] [address] [phone] Hemoglobin A1c 7.2 % High 4.0 - 6.0 Microalbumin 05/22/2019 [facility] Microalbumin urine 14.0 mg/L 0.0 - [address] [place] [address] [phone] Miroalb/Creat Ratio 0.1 mg/g 0.0 - 16.0 Urine Creatinine 124.4 mg/dL 63.0 - 166.0 Laboratory test 05/22/2019 [facility] TSH 3.48 uIU/mL 0.44 - 4.71 finding [address] [place] [address] [phone] FT4 1.16 ng/dL 0.70 - 1.48 Lipid 01/02/2019 [facility] Cholesterol 166 mg/dL <200 [address] [place] [address] [phone] HDL Cholesterol 53 mg/dL 40 - 60 HDL Risk Factor 3.1 calc 3 LDL (Calculated) 100 calc 0 - 129 Triglycerides 63 mg/dL 0 - 150 VLDL Cholesterol 13 calc CMP 01/02/2019 [facility] Sodium 140 mmol/L 136 - 145 [address] [place] [address] [phone] Potassium 4.7 mmol/L 3.5 - 5.1 Chloride 102 mmol/L 98 - 107 A/G Ratio 1.5 calc Glucose 147 mg/dL High 80 - 105 Bun 22 mg/dL 8 - 26 Creatinine 1.1 mg/dL 0.7 - 1.3 BUN/Creat Ratio 19.6 calc Total Protein 6.9 g/dL 6.4 - 8.3 Albumin 4.1 g/dL 3.5 - 5.0 Anion Gap 10.7 Alk. Phosphatase 65 U/L 40 - 150 Alt 17 U/L 0 - 55 Ast 16 U/L 5 - 34 Total Bilirubin 0.70 mg/dL 0.20 - 1.20 gfr (gfr-ca) >60 ml/min/1.73m >60 gfr (gfr-aa) >60 ml/min/1.73m >60 C02 32 mmol/L 23 - 32 Calcium 9.4 mg/dL 9.0 - 10.5 Globulin 2.8 g/dL Hemoglobin A1c 01/02/2019 [facility] Estimated Average [address] [place] [address] [phone] Hemoglobin A1c 6.6 % High 4.0 - 6.0 Laboratory test 01/02/2019 [facility] TSH 3.64 uIU/mL 0.44 - 4.[address] [place] [address] [phone] FT4 1.11 ng/dL 0.70 - 1.48 1 CHD RISK FACTOR VS CHOLESTEROL/HDL RATIO RELATIVE TOTAL CHOL/HDL RATIO RISK FOR CHD MALE FEMALE [address] CHD 3.3 3.3 AVERAGE 4.9 4.4 2 X AVERAGE 9.6 7.0 3 X AVERAGE 24.0 11.0 CHD RISK FACTOR VS CHOLESTEROL/HDL RATIO RELATIVE TOTAL CHOL/HDL RATIO RISK FOR CHD MALE FEMALE [address] CHD 3.3 3.3 AVERAGE 4.9 4.4 2 X AVERAGE 9.6 7.0 3 X AVERAGE 24.0 11.0 2 IF MPV RESULT IS (----) THIS IS DUE TO DIFFERENT SIZE PLATELET POPULATIONS THAT HAS BEEN DETECTED BY THE ANALYZER IF MPV RESULT IS (----) THIS IS DUE TO DIFFERENT SIZE PLATELET POPULATIONS THAT HAS BEEN DETECTED BY THE ANALYZER 3 CHD RISK FACTOR VS CHOLESTEROL/HDL RATIO RELATIVE TOTAL CHOL/HDL RATIO RISK FOR CHD MALE FEMALE [address] CHD 3.3 3.3 AVERAGE 4.9 4.4 2 X AVERAGE 9.6 7.0 3 X AVERAGE 24.0 11.0 CHD RISK FACTOR VS CHOLESTEROL/HDL RATIO RELATIVE TOTAL CHOL/HDL RATIO RISK FOR CHD MALE FEMALE [address] CHD 3.3 3.3 AVERAGE 4.9 4.4 2 X AVERAGE 9.6 7.0 3 X AVERAGE 24.0 11.0 Procedures Date Code Description Status 06/15/2016 [id number] Colonoscopy Completed 05/16/2005 [id number] Colonoscopy Completed Medical Devices Description No Information Available Encounters Type Date Location Provider Dx Diagnosis Office Visit 05/29/2019 [facility] Faith Montano, E11.9 Type 2 diabetes 11:[facility] M.DV[facility] mellitus without complications I10 Essential (primary) hypertension E78.2 Mixed hyperlipidemia E03.8 Other specified hypothyroidism Z68.43 Body mass index (BMI) 50.0-59.9, adult Office Visit 01/17/2019 2:10p [facility] Faith Montano, E11.9 Type 2 diabetes [facility] Pratt mellitus without complications I10 Essential (primary) hypertension E03.8 Other specified hypothyroidism E78.2 Mixed hyperlipidemia Z68.43 Body mass index (BMI) 50.0-59.9, adult Assessments Date Code Description Provider 05/29/2019 E11.9 Type 2 diabetes mellitus without complications Faith Montano M.D. 05/29/2019 I10 Essential (primary) hypertension Faith Montano M.D. 05/29/2019 E78.2 Mixed hyperlipidemia Faith Montano M.D. 05/29/2019 E03.8 Other specified hypothyroidism Faith Montano M.D. 05/29/2019 Z68.43 Body mass index (BMI) 50.0-59.9, adult Faith Montano M.D. 05/22/2019 E78.2 Mixed hyperlipidemia Faith Montano M.D. 05/22/2019 E78.2 Mixed hyperlipidemia Laboratory 05/22/2019 I10 Essential (primary) hypertension Faith Montano M.D. 05/22/2019 I10 Essential (primary) hypertension Laboratory 05/22/2019 E11.9 Type 2 diabetes mellitus without complications Faith Montano M.D. 05/22/2019 E11.9 Type 2 diabetes mellitus without complications Laboratory 05/22/2019 E03.8 Other specified hypothyroidism Faith Montano M.D. 05/22/2019 E03.8 Other specified hypothyroidism Laboratory 01/17/2019 E11.9 Type 2 diabetes mellitus without complications Faith Montano M.D. 01/17/2019 I10 Essential (primary) hypertension Faith Montano M.D. 01/17/2019 E03.8 Other specified hypothyroidism Faith Montano M.D. 01/17/2019 E78.2 Mixed hyperlipidemia Faith Montano M.D. 01/17/2019 Z68.43 Body mass index (BMI) 50.0-59.9, adult Faith Montano M.D. 01/02/2019 E78.2 Mixed hyperlipidemia Faith Montano M.D. 01/02/2019 E78.2 Mixed hyperlipidemia Laboratory 01/02/2019 E11.9 Type 2 diabetes mellitus without complications Faith Montano M.D. 01/02/2019 E11.9 Type 2 diabetes mellitus without complications Laboratory 01/02/2019 E03.8 Other specified hypothyroidism Faith Montano M.D. 01/02/2019 E03.8 Other specified hypothyroidism Laboratory Plan of Treatment 05/29/2019 - Faith Montano M.D.E11.9 Type 2 diabetes mellitus without complicationsComments:Controlled, Continue with monitoring blood sugars post prandial and fasting in am, continue with current regimen, recheck fasting blood work in 3 months, and follow up thereafter. Continue with diet and exercise.Follow up:.I10 Essential (primary) hypertensionComments:Monitor BP at home and outside the office. Importance of weight management, diet low in saturated fats, fried foods, low in salt and limit intake of caffeine discussed. Lee as planned. If pt finds hisBlood pressure consistently above 134 /85, pt is to come in for a follow up. Screened for Kidney Disease. Blood pressure is under control.Follow up:.E78.2 Mixed hyperlipidemiaComments: Controlled with diet, exercise, weight loss and lipid lowering regimenFollow up: .E03.8 Other specified hypothyroidismComments:Chemically and clinically euthyroid. Continue current regimen.Follow up:.Z68.43 Body mass index (BMI) 50.0 -59.9, adultComments:High BMI suggestive of obesity. Recomended healthy well balanced diet, weight reductionRegular exercise etc.AllFollow up:. Functional Status Functional Condition Comment Date Status Glasses Active Hearing Aid in both ears Active Mental Status Description No Information Available Referrals Description No Information Available
--- OUTSIDE RECORDS SUMMARY | 2019-07-17 13:30 | XMS REPORT | Continuity of Care Document ---
:1950 External Reference #:[id number] Author Name Laboratory (transmitted by agent of provider Faith Montano) Address [address] [place] [address] Care Team Providers Name Role Phone Faith Montano M.D. - Family Medicine Care Team Information Life Insurance Underwriter Daniel Montano DO Care Team Information Life Insurance Underwriter [phone] Problems Active Problems Provider Date Type 2 [...] Potassium 1 by mouth every 90tabs Faith Montano 50mg Tablets day M.D. 9 Hydrochlorothiazide 1 [...] Capsules Eliquis 1 by mouth twice Montano, [place] 5mg Tablets a day DO 0 Metoprolol [...] Ceftriaxone/Rocephin Usha WallR.NViji, 12/08/2007 250MG/1Unit [facility] Injection Ceftriaxone/Rocephiconor Montano M.D. 09/20/2007 250MG/1Unit Injection Ceftriaxone/Rocephin Hugo Colindres MD 09/19/2007 250MG/1Unit Injection Promethazine Up To 50MG/1cc Roger Collins, R.P.A. 08/28/2004 Injection Ketorolac 15mg Roger Collins R.P.A. 08/28/2004 Injection Immunizations CPT Code Status Date Vaccine Lot # [id number] Given 03/20/2019 Flu/Sanofi/Fluzone Iiv3 High-Dose Age 65 And Older 42648 Given 04/27/2018 Flu/Sanofi/Fluzone Iiv3 High-Dose Age 65 And [id number] Older 57766 Given 08/22/2017 Pneumovax [id number] 62069 Given 04/12/2017 Flu/Sanofi/Fluzone Iiv3 High-Dose Age 65 And [id number] Older 24887 Given 06/15/2016 Prevnar (Pneumococcal 13/V C.Vaccine) [id number] 41360 Given 02/03/2016 Flu/Sanofi/Fluzone Iiv4 3Yrs And Older [id number] Q2037 Given 02/10/2015 Fluvirin Iiv3 Records Only 06278 Given 02/11/2014 Flu/Sanofi/Fluzone Iiv4 3Yrs And Older [id number] 10207 Given 10/02/2013 Zoster( Zostavax ) [id number] Q2035 Given 02/09/2013 Flu/Afluria/Seqirus Records Only Q2038 Given 02/28/2012 Flu/Trivalent MDV Medicare Records Only [id number] Q2035 Given 03/17/2011 Flu/Afluria/Seqirus Records Only 42349 Given 03/02/2010 Adacel (TdaP) [id number] 84323 Given 01/14/2010 Fluvirin/Trivalent Iiv3 4Yr & Older 96408 Given 06/09/2009 Fluvirin/Trivalent Iiv3 4Yr & Older [id number] 39862 Given 05/26/2009 H1N1 Influenza Virus Vaccine 21843 Given 04/18/2006 Fluvirin/Trivalent Iiv3 4Yr & Older 51687 Given 03/07/2003 Fluvirin/Trivalent Iiv3 4Yr & Older Vital Signs Date Vital Result Comment 01/17/2019 2:03pm Weight 355.25 lb Height 70 inches 5'10" BP Systolic 126 mmHg BP Diastolic 80 mmHg Heart Rate 78 /min BMI (Body Mass Index) 51.0 kg/m2 Z68.43 A, 50.0-59.9 09/06/2018 1:20pm Weight 354.38 lb Height 70 inches 5'10" BP Systolic 138 mmHg BP Diastolic 88 mmHg Heart Rate 78 /min BMI (Body Mass Index) 50.8 kg/m2 Z68.43 A, 50.0-59.9 Results Test Acquired Date Facility Test Result H/L Range Note Lipid 05/22/2019 [facility] Cholesterol 151 mg/dL <200 [address] [place] [address] [phone] HDL Cholesterol 44 mg/dL 40 - 60 HDL Risk Factor 3.4 calc 1 LDL (Calculated) 96 calc 0 - 129 Triglycerides 55 mg/dL 0 - 150 VLDL Cholesterol 11 calc CMP 05/22/2019 [facility] Sodium 136 mmol/L 136 - 145 [address] [place] [address] [phone] Potassium 4.1 mmol/L 3.5 - 5.1 Chloride [...] - 10.5 Globulin 2.7 g/dL CBC 05/22/2019 [facility] WBC Blood 5.6 K/uL 4.5 - 11.0 [address] [place] [address] [phone] RBC Blood 4.98 m/uL 4.60 - 5.40 [...] 3.4 Lymph% 28.1 % 20.0 - 40.0 [place]# 1 10 0 - 2 [place]% 10 % 0 - 15 Eos# 0 10 0 - 1 Eos% 2 % 0 - 10 Baso# 0 10 0 - 0 Baso% 0 % 0 - 2 Immature grans # 0 10 0 - 0 Immature Grans % 0 % 0 - 1 Hemoglobin A1c 05/22/2019 [facility] Estimated Average 160 [address] [facility] [place] [address] [phone] Hemoglobin A1c 7.2 % High 4.0 - 6.0 Microalbumin 05/22/2019 [facility] Microalbumin urine 14.0 mg/L 0.0 - [address] [facility] [address] [place] [address] [phone] Miroalb/Creat Ratio 0.1 mg/g 0.0 - 16.0 Urine Creatinine 124.4 mg/dL 63.0 - 166.0 Laboratory test 05/22/2019 [facility] TSH 3.48 uIU/mL 0.44 - 4.71 finding [address] [place] [address] [phone] FT4 1.16 ng/dL 0.70 - 1.48 Lipid 01/02/2019 [facility] Cholesterol 166 mg/dL <200 [address] [place] [address] [phone] HDL Cholesterol 53 mg/dL 40 - 60 HDL Risk Factor 3.1 calc 3 LDL (Calculated) 100 calc 0 - 129 Triglycerides 63 mg/dL 0 - 150 VLDL Cholesterol 13 calc CMP 01/02/2019 [facility] Sodium 140 mmol/L 136 - 145 [address] [place] [address] [phone] Potassium 4.7 mmol/L 3.5 - 5.1 Chloride [...] 10.5 Globulin 2.8 g/dL Hemoglobin A1c 01/02/2019 [facility] Estimated Average [address] [place], [place] [address] [phone] Hemoglobin A1c 6.6 % High 4.0 - 6.0 Laboratory test 01/02/2019 [facility] TSH 3.64 uIU/mL 0.44 - 4.[address] [place], [place] [address] [phone] FT4 1.11 ng/dL 0.70 - 1.48 1 [...] 11.0 Procedures Date Code Description Status 06/15/2016 [id number] Colonoscopy Completed 05/16/2005 [id number] Colonoscopy Completed Medical Devices Description No Information Available Encounters Type Date Location Provider Dx Diagnosis Office Visit 01/17/2019 [facility] Faith Montano, E11.9 Type 2 diabetes 2:10p [facility] M.D. mellitus without complications I10 Essential (primary) hypertension E03.8 Other specified hypothyroidism E78.2 Mixed hyperlipidemia Z68.43 Body mass index (BMI) 50.0-59.9, adult Assessments Date Code Description Provider 05/22/2019 E78.2 Mixed hyperlipidemia Faith Montano M.D. [...] M.D. 01/17/2019 I10 Essential (primary) hypertension Faith Montaon M.D. 01/17/2019 E03.8 Other specified hypothyroidism Faith [...] Other specified hypothyroidism Laboratory Plan of Treatment Future Appointment(s):05/29/2019 11:30 [facility] Faith Montano M.D.E11.9 Type 2 diabetes mellitus without complicationsComments:Worsening Control, Continue with monitoring blood sugars post prandial and fasting in am, continue with current regimen, recheck fasting blood work in 3 months, and follow up thereafter. Continue withdiet and exercise. Congratulated on efforts.Follow up:. apt with Hayley for ACV FBW and F/U in 4 months.I10 Essential (primary) hypertensionComments:Monitor BP at home and outside the office. Importance of weight management, diet low in saturated fats, fried foods, low in salt and limit intake of caffeine discussed. Lee as planned. If pt finds hisBlood pressure consistently above 134/85, pt is to come in for a follow up. Screened for Kidney Disease. Blood pressure is under control.Follow up:.E03.8 Other specified hypothyroidismComments:Chemically and clinically euthyroid. Continue current regimen.Follow up:.E78.2 Mixed hyperlipidemiaComments:Intolerant to statinsBetter / tolerating Zetia. Cont on same, not at target. F/UFollow up: .Z68.43 Body mass index (BMI) 50.0-59.9, adultComments:High BMI suggestive of obesity. Recomended healthy well balanced diet, weight reductionRegular exercise etc.AllFollow up:. Functional Status Functional Condition Comment Date Status Glasses Active Hearing Aid in both ears Active Mental Status Description No Information Available Referrals Description No Information Available
[2019-07-17] MEDS ORDERED: ceFAZolin 1 GM ADVAN(*) 1 GM ADDV.VIAL IVPB ONE (14:23)
[2019-07-17] MEDS ORDERED: Heparin VIAL(*) 5000 UNITS/ML VIAL (FIVE THOUSAND) ONE (14:23)
[2019-07-17] MEDS ORDERED: Buffered Lidocaine 1% SYRIN* 1 ML/SYRINGE INTRADERM ONE (14:24)
[2019-07-17] MEDS ORDERED: ceFAZolin 2 GM in NS PREMIX(*) 2 GM/100 ML BAG IVPB ONE (14:24)
[2019-07-17] MEDS ORDERED: fentaNYL* 50 MCG/ML 2 ML VIAL (100 MCG VIAL) ONE ×4 (17:16→20:46)
[2019-07-17] MEDS ORDERED: Lidocaine 2% PF * 5 ML VIAL ONE (17:17)
[2019-07-17] MEDS ORDERED: Propofol* 10 MG/ML 20 ML BTL ONE (17:17)
[2019-07-17] MEDS ORDERED: Rocuronium* 10 MG/ML VIAL ONE ×2 (17:17→18:59)
[2019-07-17] MEDS ORDERED: Midazolam* 1 MG/ML 5 ML VIAL (5 MG) ONE (17:17)
[2019-07-17] MEDS ORDERED: Scopolamine 1.5 mg* PATCH ONE (18:09)
[2019-07-17] MEDS ORDERED: Metoprolol Tartrate IV* 1 MG/ML 5 ML VIAL ONE (18:13)
[2019-07-17] MEDS ORDERED: Bupivacaine 0.5% W/EPI SDV* 30 ML VIAL ONE (18:34)
[2019-07-17] MEDS ORDERED: Ketorolac INJ* 30 MG/ML 1 ML VIAL ONE (19:12)
[2019-07-17] MEDS ORDERED: Ondansetron INJ* 2 MG/ML VIAL ONE (19:12)
[2019-07-17] MEDS ORDERED: PROCHLORPERAZINE INJ 5 MG/ML 2 ML VIAL ONE (19:12)
[2019-07-17] MEDS ORDERED: Sugammadex * 500 MG/5 ML VIAL IV PUSH ONE (19:34)
--- NOTE | 2019-07-17 19:36 | BRIEFOPN ---
Brief Operative/Procedure Note - Operation Details Pre-Op Diagnosis: morbid obesity Post-Op Diagnosis: same Procedures: laparoscopic sleeve gastrectomy Surgeon(s)/Proceduralists: Ceasar. Assist: JESSICA Barry Anesthesia: GET. Fluids: 2 liters Estimated Blood Loss: < 50 ml Findings: as above Specimen(s)/Culture(s) Description: portion of stomach Complications: none
[2019-07-17] MEDS ORDERED: Acetaminophen ADULT LIQ* 650 MG/20.3 ML UDC PO PRN (19:37)
[2019-07-17] MEDS ORDERED: HYDROmorphone INJ1* 1 MG/ML SYRINGE IV SLOW PU PRN (19:42)
[2019-07-17] MEDS ORDERED: HYDROcodone/ACET. 7.5/325 LIQ* 15 ML UDC PO PRN (19:42)
[2019-07-17] MEDS ORDERED: Oxymetazoline 0.05% NASAL SPR* 15 ML BTL BOTH NARES PRN (19:44)
[2019-07-17] MEDS ORDERED: Dextrose 50% Syringe 50 ML* 25 GM/50 ML SYRINGE IV PUSH PRN (19:46)
[2019-07-17] MEDS ORDERED: Naloxone* 0.4 MG/ML 1 ML VIAL IV PRN (20:13)
[2019-07-17] MEDS: fentaNYL* 50 MCG/ML 2 ML VIAL (100 MCG VIAL) IV PRN ×2 (20:47→21:01)
[2019-07-17] MEDS: Heparin VIAL(*) 5000 UNITS/ML VIAL (FIVE THOUSAND) SUBCUT SCH (22:45)
[2019-07-17] MEDS: Famotidine IV* 10 MG/ML 2 ML (20 mg) IV SLOW PU SCH (22:48)
[2019-07-17] MEDS: Lactated Ringers 1000 ML Bag* 1,000 ML IV SCH (22:48)
[2019-07-17] MEDS: Fluticasone NASAL SPRAY 50MCG* 16 gm SPRAY BTL BOTH NARES SCH (22:52)
[2019-07-17] MEDS: Ketorolac INJ* 30 MG/ML 1 ML VIAL IV SCH (23:50)
[2019-07-17] MEDS: Metoprolol Tartrate IV* 1 MG/ML 5 ML VIAL IV SCH (23:51)
[2019-07-18] MEDS: Insulin LISPRO* 1 UNITS UNIT SUBCUT SCH ×4 (00:23→17:11)
[2019-07-18] MEDS: Ondansetron INJ* 2 MG/ML VIAL IV PRN ×2 (01:14→07:39)
[2019-07-18] MEDS: HYDROmorphone INJ* 0.5 MG/0.5 ML SYRINGE IV SLOW PU PRN ×2 (01:16→04:15)
[2019-07-18] MEDS: Lactated Ringers 1000 ML Bag* 1,000 ML IV SCH ×2 (05:29→12:05)
[2019-07-18] MEDS: Ketorolac INJ* 30 MG/ML 1 ML VIAL IV SCH ×3 (06:22→17:11)
[2019-07-18] MEDS: Heparin VIAL(*) 5000 UNITS/ML VIAL (FIVE THOUSAND) SUBCUT SCH ×2 (06:24→14:55)
[2019-07-18] MEDS: Metoprolol Tartrate IV* 1 MG/ML 5 ML VIAL IV SCH ×3 (06:24→17:12)
--- NOTE | 2019-07-18 09:36 | PN ---
Progress Note - Progress Note Date of Service: 07/18/19 Note: S: patient seen with and examined by Dr. Mcdonough. Doing ok. No problems reported. O: Vital Signs - 8 hr 07/18/19 07/18/19 07/18/19 03:33 04:15 05:51 Temperature 98.3 F Pulse Rate 84 Respiratory 18 18 Rate Blood Pressure 141/65 (mmHg) O2 Sat by Pulse 97 97 Oximetry 07/18/19 07/18/19 07/18/19 07:21 07:42 08:26 Temperature 97.9 F Pulse Rate 71 Respiratory 18 18 Rate Blood Pressure 126/58 (mmHg) O2 Sat by Pulse 97 92 Oximetry Intake and Output Last 24 Hours 07/16/19 07/17/19 07/18/19 07/19/19 06:59 06:59 06:59 06:59 Intake Total 3380 Output Total 425 Balance 2955 Weight 323 lb 12.8 oz Intake: IV Fluids 3380 LR 3380 Output: Urine 375 Estimated Blood Loss 50 Other: Estimated Void Medium # Voids 1 Gen: appears well; NAD Abd: lap sites ok; soft; no sig tenderness to palp A: s/p lap sleeve gastrectomy, doing well P: start jeanna clears; poss d/c later today
[2019-07-18] MEDS: Famotidine IV* 10 MG/ML 2 ML (20 mg) IV SLOW PU SCH (09:53)
[2019-07-18] MEDS: Fluticasone NASAL SPRAY 50MCG* 16 gm SPRAY BTL BOTH NARES SCH (09:54)
[2019-07-18 15:21] VITALS: BP 147/78
--- NOTE | 2019-07-18 17:14 | DS ---
Admit date: 07/17/2019 Discharge date: 07/18/2019 Admit diagnosis: Morbid Obesity Discharge diagnosis: Morbid Obesity Procedure performed: Laparoscopic Sleeve Gastrectomy PEX General: Alert, in NAD or discomfort. Integumentary: No rashes, jaundice, petechia. HEENT: Oropharynx clear. PERRLA. Heart: RRR, no MRG. Lungs: CTAB. No WRR. ABD: BS present. Soft, nondistended. Tender in epigastrium and surrounding his incisions,which are C/D/I. No guarding or rebound tenderness. Extremities: Calves soft and nontender. No edema. Distal pulses intact bilaterally. Hospital course: Admitted for the above named procedure. Tolerated it well and was transferred to [facility] for post operative care. On POD#1 he was placed on bariatric clears. After some nausea resolved, he was tolerating up to 4 oz of clear liquids per hour without problem. He was ambulating without issue, passing flatus, and pain was well controlled. Otherwise was without complaint and ready to go home. Discharge instructions were given to the patient regarding diet, medications, activity, care for incisions, and follow up. All questions were answered. Discharged home in stable condition on 07/18/2019.
--- NOTE | 2019-07-18 17:18 | PN ---
Progress Note - Progress Note Date of Service: 07/18/19 Note: 69 yo male S/P Lap Gastric Sleeve 07/17/2019 now tolerating bariatric liquids @ 4 oz per hour without nausea + Flatus - BM PEX Chest: CTAB CVS: RRR ABD: soft, + BS'S, INCISIONS c/d/i A/P: Stable S/P Lap Sleeve, desires D/C Home as was discussed with him earlier. Resume Eliquis tomorrow, resume home meds Follow up as scheduled next @ [facility]
[2019-07-18] MEDS ORDERED: D5W 1/2 NS KCl 20 Meq 1000 ML* 1,000 ML IV SCH (19:41)
--- NOTE | 2019-07-19 22:51 | OP ---
: [facility]; Faith Montano MD* OPERATIVE REPORT: DATE OF OPERATION: 07/17/19 - Inpatient, SSU [id number] DATE OF : 52 SURGEON: Kingston Mcdonough MD DATA PROCESSING CONTROL CLERK: JESSICA Johnson ANESTHESIOLOGIST: Rashmi Alexandra MD ANESTHESIA: General endotracheal. PRE-OP DIAGNOSIS: Clinically severe obesity. POST-OP DIAGNOSES: Clinically severe obesity. OPERATIVE PROCEDURE: Laparoscopic sleeve gastrectomy. ESTIMATED BLOOD LOSS: Minimal. IV FLUIDS: Crystalloid. SPECIMEN: Portions of stomach. DRAINS: None. COMPLICATIONS: None. COUNTS: Instrument, needle and sponge counts correct. DESCRIPTION OF PROCEDURE: The patient was brought to the operating room and placed on the table supine. Sequential compression devices were placed on both lower extremities and general anesthesia was administered. The abdomen was prepped and draped in usual sterile fashion. A time-out was performed. Local anesthetic was infiltrated into the skin and soft tissue prior to making each incision. Entry to the abdomen was through a left upper quadrant incision accommodating a 5 mm optical trocar. After accessing the peritoneal cavity, carbon dioxide was insufflated to a pressure of 15 mmHg. Under direct visualization, two 12 mm trocars were placed, one in the supraumbilical midline , one in the right upper quadrant, and a 5 mm trocar was placed in the left upper quadrant laterally. A Tanner liver retractor was placed percutaneously in the subxiphoid position and used to elevate the left lobe of the liver. The gastric anatomy appeared normal. There was a large epigastric fat pad. There was a significant amount of intraperitoneal fat. The skeletonization of the stomach proceeded 6 cm proximal to the pylorus using a LigaSure to divide the short gastric vessels. There was close adherence to the spleen and the dissection was rather tedious near the upper pole vessels. The posterior short gastric vessels were divided and adhesions in the lesser sac were taken down as well to make sure that the stomach was well mobilized. At this point, a sleeve gastrectomy was performed using the Endo-MALI stapler with 60 mm purple reinforced cartridges. The sleeve gastrectomy was performed over a 40- German bougie. After completing the sleeve gastrectomy, the bougie was removed. Staple lines were inspected and noted to be intact and hemostatic. The specimen was retrieved using a retrieval bag to the right upper quadrant wound. The wound site was closed with a single 0 Vicryl suture using an EndoClose device. Again, hemostasis was ensured. Tanner liver retractor was removed. The ports were removed under direct visualization. Carbon dioxide was released. A 4-0 Monocryl was used to close the skin in a subcuticular fashion and then DermaFlex was applied to the wounds. The patient tolerated the procedure well, was extubated uneventfully and transferred to Recovery in stable condition. [id number]/[facility] #: [id number] [facility]
== END 2019-07-18 18:00 | disposition home or self-care (01) | DRG 621 ==
LOC: AA 07-17 13:24 → SSU 07-17 21:40
PROVIDERS: ADMIT Surgery; ATTEND Surgery
PROC: 0DB64Z3 Excision of Stomach, Percutaneous Endoscopic Approach, Vertical (ICD-10-PCS; principal; 2019-07-17 15:15)
DX: E66.01 Morbid (severe) obesity due to excess calories (principal); E11.9 Type 2 diabetes mellitus without complications; G89.29 Other chronic pain; M54.9 Dorsalgia, unspecified; M19.90 Unspecified osteoarthritis, unspecified site; I10 Essential (primary) hypertension; E78.5 Hyperlipidemia, unspecified; K21.9 Gastro-esophageal reflux disease without esophagitis; I48.91 Unspecified atrial fibrillation; Z68.42 Body mass index [BMI] 45.0-49.9, adult
CPT/HCPCS: 43775; 88307; A9270-GY; J0690; J0780; J1170; J1644; J1885; J2250; J2405; J2704; J3010; J3490